=== PATIENT | female | born 1990 | race Hispanic/Latino ===

== ENCOUNTER 2018-03-07 18:27 | Emergency (ER) | payer SELFPAY ==
[~2018-03-07 18:27] MED LIST: ISOVUE-370 76%-LOCM 1 ML ONE
[2018-03-07 18:47] LABS: #Basophils 0.1 thou/uL (0.0-0.2); #Eosinphils 0.2 thou/uL (0.0-0.7); #Lymphocytes 2.8 thou/uL (1.20-3.40); #Monocytes 0.8 thou/uL (0.11-0.59); #Neutrophils 7.5 thou/uL (1.40-6.50); %Basophils 0.5 % (0.0-1.0); %Eosinophils 1.4 % (0.0-10.0); %Lymphocytes 24.4 % (21.0-51.0); %Monocytes 6.9 % (0.0-10.0); %Neutrophils 66.7 % (42.0-75.0); Hemoglobin 13.9 g/dL (12.0-16.0); Mean Corpuscular HGB CONC 34.2 g/dL (32.0-36.0); Mean Corpuscular Volume 90.7 fl (81.0-99.0); Platelet Count 353 thou/uL (130-400); Red Blood Cell (RBC) Count 4.48 mill/uL (4.20-5.40); White Blood Cell (WBC) Count 11.3 thou/uL (4.8-10.8)
[2018-03-07 18:54] LABS: BHCG - Serum Negative (NEGATIVE); Pregs Control Background? CLEAR/WHITE (CLR/WHITE); Pregs Control Bar Appear? YES (CONTROL BAR)
[2018-03-07 19:00] LABS: Bilirubin Negative (Negative); Blood, Urine Negative (Negative); Clarity CLEAR (Clear); Glucose, Urine (Dipstick) Negative (Negative); Leukocyte Negative (Negative); Nitrite Negative (Negative); Protein, Urine (Dipstick) Negative (Neg-Trace); Specific Gravity, Urine 1.034 (1.002-1.036); pH, Urine 5.5 (5.0-9.0)
[2018-03-07 19:07] LABS: ALT (SGPT) 31 U/L (8-55); AST (SGOT) 23 U/L (5-34); Albumin 4.3 g/dL (3.5-5.0); Alkaline Phosphatase 89 U/L (40-150); Anion Gap 13 mmol/L (10-20); BUN (Urea Nitrogen) 17 mg/dL (7.0-18.7); Bilirubin, Total 0.5 mg/dL (0.2-1.2); Calc. Creatinine Clearance 0 mL/min (70-130); Calcium 9.6 mg/dL (7.8-10.44); Carbon Dioxide 24 mmol/L (22-29); Chloride 103 mmol/L (98-107); Estimated GFR-MDRD Greater than 90; Glucose 133 mg/dL (70-105); Lipase 15 U/L (8-78); Potassium 3.9 mmol/L (3.5-5.1); Protein, Total 7.3 g/dL (6.0-8.3); Sodium 136 mmol/L (136-145)
--- NOTE | 2018-03-07 22:02 | ULT ---
ULTRASOUND PELVIS DOPPLER DUPLEX: 03/07/18 at 8:30 p.m. HISTORY: 27-year-old female with right sided pelvic pain. TECHNIQUE: Transabdominal transducer was used to evaluate the intrapelvic contents. Color flow and spectral anal ysis of adnexa. FINDINGS: Because a transvaginal ultrasound was not performed, and because of body habitus, the evaluation is l imited, especially of the lower uterine segment. Uterus is 7.5 x 3.5 x 5.5 cm. Endometrial stripe is poorly visualized. It is measured as 1 cm (10 mm). Right ovary: 3.5 x 1.5 x 3 cm. Left ovary: 3 x 2.5 x 2.5 cm. Blood flow demonstrated in both ovaries by doppler. No free fluid visualized in the cul-de-sac. No ovarian cyst is visualized. IMPRESSION: 1. Limited study. 2. No pathology identified. POS: [facility]
--- NOTE | 2018-03-07 23:34 | CT ---
ABDOMEN AND PELVIC CT NONCONTRAST: 03/07/18 CLINICAL HISTORY: Right abdominal pain. Reference made to 02/28/18. FINDINGS: Absence of enteric contrast precludes reliable assessment of the bowel. Fat containing umbilical breana ia is present. There is low attenuation of the hepatic parenchyma which may be on the basis of hepati c steatosis. Correlate with liver function enzymes. There is 5.6 cm in diameter rounded mass involvin g the lateral segment left hepatic lobe with subtle internal hypodensity. There is prominent size of each adnexa and heterogeneity and prominence of the uterus. No acute osseo us pathology. IMPRESSION: 1. Large heterogeneous mass of the left hepatic lobe. Finding may represent focal nodular hyperp lasia given patient age and imaging appearance, although this finding is nonspecific and additional etiologies are not excluded on the basis of this exam, including malignancy. Therefore recommend foll [facility] hepatic mass protocol MRI of abdomen for more definitive characterization. 2. Noninflamed fat containing periumbilical hernia. 3. Incomplete assessment of bowel without enteric contrast. 4. Heterogeneity and prominence of uterus and adnexa. Correlate clinically. POS: [facility]
== END 2018-03-07 23:57 | disposition home or self-care (01) ==
LOC: ERS 18:27
DX: N83.209 Unspecified ovarian cyst, unspecified side (principal)
CPT/HCPCS: 36415; 74177; 76856; 80053; 81003; 83690; 84703; 85025; 93976

== ENCOUNTER 2019-04-02 07:54 | Emergency (ER) | payer SELFPAY ==
[2019-04-02 08:22] LABS: Bilirubin Negative (Negative); Blood, Urine Negative (Negative); Clarity CLEAR (Clear); Glucose, Urine (Dipstick) Negative (Negative); Leukocyte Negative (Negative); Nitrite Negative (Negative); Protein, Urine (Dipstick) Negative (Neg-Trace); Specific Gravity, Urine 1.019 (1.002-1.036); pH, Urine 6.5 (5.0-9.0)
[2019-04-02 08:31] LABS: #Basophils 0.1 thou/uL (0.0-0.2); #Eosinphils 0.1 thou/uL (0.0-0.7); #Lymphocytes 2.6 thou/uL (1.20-3.40); #Monocytes 0.8 thou/uL (0.11-0.59); #Neutrophils 8.1 thou/uL (1.40-6.50); %Basophils 0.6 % (0.0-1.0); %Eosinophils 1.2 % (0.0-10.0); %Lymphocytes 22.5 % (21.0-51.0); %Monocytes 6.6 % (0.0-10.0); %Neutrophils 69.1 % (42.0-75.0); BHCG - Serum POSITIVE (NEGATIVE); Hemoglobin 13.6 g/dL (12.0-16.0); Mean Corpuscular HGB CONC 32.7 g/dL (32.0-36.0); Mean Corpuscular Hemoglobin 29.6 pg (27.0-31.0); Mean Corpuscular Volume 90.5 fL (78.0-98.0); Mean Platelet Volume 7.3 fL (7.4-10.4); Platelet Count 314 thou/uL (130-400); Pregs Control Background? CLEAR/WHITE (CLR/WHITE); Pregs Control Bar Appear? YES (CONTROL BAR); RBC Distribution Width 12.4 % (11.5-14.5); Red Blood Cell (RBC) Count 4.59 mill/uL (4.20-5.40); White Blood Cell (WBC) Count 11.8 thou/uL (4.8-10.8)
[2019-04-02 08:53] LABS: ALT (SGPT) 22 U/L (8-55); AST (SGOT) 20 U/L (5-34); Albumin 4.3 g/dL (3.5-5.0); Alkaline Phosphatase 67 U/L (40-150); Anion Gap 13 mmol/L (10-20); BUN (Urea Nitrogen) 10 mg/dL (7.0-18.7); Bilirubin, Total 0.6 mg/dL (0.2-1.2); Calc. Creatinine Clearance 0 mL/min (70-130); Calcium 9.7 mg/dL (7.8-10.44); Carbon Dioxide 23 mmol/L (22-29); Chloride 104 mmol/L (98-107); Estimated GFR-MDRD Greater than 90; Glucose 92 mg/dL (70-105); Potassium 3.8 mmol/L (3.5-5.1); Protein, Total 7.3 g/dL (6.0-8.3); Sodium 136 mmol/L (136-145)
--- NOTE | 2019-04-02 09:16 | ULT ---
PELVIC ULTRASOUND: DATE: 04/02/2019. HISTORY: Pelvic and abdominal pain. Last menstrual period on 02/07/2019. FINDINGS: Multiple transabdominal sonographic images of the pelvis are obtained. A fluid collection is seen wi thin the endometrial canal which contains both a pole and a yolk sac. Cardiac Doppler does dem onstrate heart tones with a heart rate of 136 b.p.m. The crown-rump length measures 0.91 cm corresponding to a gestational age by ultrasound of 6 weeks and 6 days. There are no findings to suggest a subchorionic hemorrhage on this examination. The ovaries demonstrate a normal sonographic appearance bilaterally. Doppler evaluation of each ovar y does suggest flow, although flow was obtained on the periphery of the right ovary. No free fluid is seen in the cul-de-sac. IMPRESSION: Single intrauterine gestation with gestational age by measurement of the crown-rump length of 6 weeks and 6 days. heart tones are documented. POS: [facility]
== END 2019-04-02 09:55 | disposition home or self-care (01) ==
LOC: ERS 07:54
DX: O20.0 Threatened abortion (principal); Z3A.01 Less than 8 weeks gestation of pregnancy
CPT/HCPCS: 36415; 76856; 80053; 81003; 84702; 84703; 85025; 93976

== ENCOUNTER 2019-08-31 10:15 | Day surgery (SDC) | payer OTHER ==
[2019-08-31 10:58] VITALS: BP 110/67; TEMP 98.6
[2019-08-31 10:59] VITALS: BMI 39.1
[2019-08-31] MEDS ORDERED: Acetaminophen/Codeine 30-300mg Tablet PO PRN (11:22)
[2019-08-31] MEDS ORDERED: hydrALAZINE 20 MG/ML VIAL SLOW IVP PRN (11:22)
--- NOTE | 2019-08-31 11:25 | PDOC.FPROB ---
FMR OB H&P: HPI - History of Present Illness Chief Complaint: Pain History of Present Illness: 28 yo at 29.2 weeks is transferred from [place] ED for back/abdominal pain. Patient reports she has had similar pain intermittently throughout but was told it was normal. Pain worsened at 01:30 this am. Describes pain as constant with times of increased intensity, currently 8.5/10, lower abdominal pressure and back cramps similar to menstruation but worse. Reports vomiting x2 this am. Denies current nausea, fever, vaginal bleeding or discharge. Reports movement. She had visitors in house last night. Drank a small beer. Primary Care Physician: Dalila FMR OB H&P: Current - Care : 4 Para: 2 Due date: 11/14/19 - OB Labs 1 hour gtt: abnormal 3 hour GTT: scheduled to be done FMR OB H&P: History - Past Medical History PMH: Denies - OB History OB History: 12 years ago: delivery 1 month early in [place] after SROM, baby's stay complicated with hyperbilirubinemia 1 ectopic 6 years ago: Term , no complications - [facility] History [facility] History: Denies hx STD infections - Surgical History Sx History: None - Social History Social History: Reports alcohol use last night. Denies tobacco or drug use. FMR OB H&P: Medications - Current Home Medications: Medication Instructions Recorded Confirmed Type Acetaminophen W/ Codeine 1 tab PO Q6H PRN #10 tab 08/31/19 Rx [Acetaminophen/Codeine #3] Nitrofurantoin Monohyd/M-Cryst 100 mg PO BID #10 capsule 08/31/19 Rx [Macrobid 100 mg Capsule] Vitamin 1 tablet PO DAILY 08/31/19 08/31/19 History Allergies/Adverse Reactions: Allergies Allergy/AdvReac Type Severity Reaction Status Date / Time No Known Allergies Allergy Unverified 08/31/19 10:49 FMR OB H&P: ROS - Review of Systems General: denies: fever/chills, weight/appetite/sleep changes Eyes: denies: vision changes, double vision ENT: denies: nasal congestion, rhinorrhea Cardiovascular: denies: chest pain, palpitation, edema Respiratory: denies: shortness of breath, exercise intolerance Gastrointestinal: reports: abdominal pain, cramping, vomiting. denies: diarrhea Genitourinary (Female): denies: dysuria, hematuria, vaginal discharge, vaginal bleeding, contractions Musculoskeletal: reports: pain, tenderness Neurologic: denies: weakness, headache Integumentary: denies: itching, rash Psychological: denies: depression, anxiety FMR OB H&P: Vital Signs - Maternal Vital signs: Vital Signs - First Documented Temp Pulse Resp BP 98.6 F 81 18 110/67 08/31/19 10:36 08/31/19 10:36 08/31/19 10:36 08/31/19 10:36 - Heart Tones Baseline: 130 Variability: moderate Acceleration: present Deceleration: absent [place] contractions every: none FMR OB H&P: Physical Exam - Physical Exam General: NAD, awake, alert and oriented HEENT: normocephalic and atraumatic, MMM Heart: RRR, normal S1/S2, no murmurs/rubs/gallops, no edema General: CTAB, no respiratory distress Abdomen: soft, gravid, other (suprapubic TTP) Musculoskeletal: normal gait and station Skin: good tugor, capillary refill <2 seconds Lymphatic: no unusual bruising or bleeding Psychiatric: intact recent and remote memory FMR OB H&P: A/P - Problem List (1) Bacteriuria in Status: Acute Code(s): O99.89 - OTH DISEASES AND CONDITIONS COMPL PREG/ CHLDBRTH; R82.71 - BACTERIURIA (2) Back pain affecting Status: Acute Code(s): O99.89 - OTH DISEASES AND CONDITIONS COMPL PREG/ CHLDBRTH; M54.9 - DORSALGIA, UNSPECIFIED Discussion: Date/Time: 08/31/19 1125 Back/groin pain - likely ligament pain - will give tylenol #3 for pain Asymptomatic bacteriuria in - +LE and 1+ bacteria on UA in outside ED - will repeat here and order culture This H&P was discussed with Dr. Samuels who agree with the above documentation and plan. Addendum - Attending - Attending Attestation Date/Time: 09/03/19 0658 I personally evaluated the patient and discussed the management with Dr. Simpson I agree with the History, Examination, Assessment and Plan documented above with any addition or exceptions noted below. Pt vitals reviewed and wnl On physical exam significant finding include pain in lower lateral pelvis with deviation of the uterus consistent with ligament pain. UA culture + for GBS Will fax results to primary OB team
[2019-08-31 12:00] LABS: Mucous/LPF Rare LPF (<2+); RBC/HPF 0-3 HPF (0-3); Squamous Epithelial 0-3 HPF (0-3); WBC/HPF 0-3 HPF (0-3)
[2019-08-31 12:05] LABS: Bacteria/HPF 1+ HPF (None Seen)
--- NOTE | 2019-08-31 15:03 | ULT ---
US Pelvic Limited, Transvaginal HISTORY: Evaluate cervical length FINDINGS: CERVIX: Examination requested by ordering physician solely for documentation of cervical length. The cervix is visualized, and the cervical length is approximately 3.3 cm. There is no funneling of the region of the internal os demonstrated sonographically. IMPRESSION: Cervical length, 3.3 cm.
== END 2019-08-31 14:34 | disposition home or self-care (01) ==
LOC: L&D/OP 10:15
PROVIDERS: ATTEND Advanced Practice Midwife
DX: O99.89 Other specified diseases and conditions complicating pregnancy, childbirth and the puerperium (principal); R82.71 Bacteriuria; M54.9 Dorsalgia, unspecified; Z3A.29 29 weeks gestation of pregnancy
CPT/HCPCS: 76857; 81015; 87077; 87086

== ENCOUNTER 2019-10-28 16:31 | Observation (INO) | payer OTHER, SELFPAY ==
[2019-10-28] MEDS ORDERED: hydrALAZINE 20 MG/ML VIAL SLOW IVP PRN (16:47)
[2019-10-28] MEDS: Morphine 10 MG/ML VIAL ONE ×2 (16:57→18:11)
[2019-10-28] MEDS ORDERED: Morphine 4 MG/ML VIAL SLOW IVP SCH (17:00)
--- NOTE | 2019-10-28 17:39 | HP ---
PRIMARY LOCKSMITH HELPER: Lauren Conner CNM CHIEF COMPLAINT: Abdominal pain. HISTORY OF PRESENT ILLNESS: The patient is a 28-year-old G4, P2 female with an intrauterine at 37 weeks, who presented to [facility] with concerns of abdominal cramping, was evaluated there and noted not to be in imminent delivery and was transferred here for evaluation. The patient reports she has been having abdominal pains of increasing intensity, though not very frequent, since last night. She reports that they have gotten worse today and was home by herself and decided to come to the emergency room for evaluation. She denies any leakage of fluid or any vaginal bleeding. She is unable to report how long they last or how frequent they are. She says they are as close as 3 minutes, but could not tell me if they were 10 or 30 minutes apart. The patient has been having musculoskeletal pains of for some time now and has been seen multiple times in clinic for it. The patient denies fever or fall. Reports a headache with vomiting. Denies chest pain or shortness of breath. She has had nausea and vomiting that she attributes to the intensity of the pain. Denies diarrhea or constipation. Denies any new rashes, hip problems, knee problems, muscle weakness. Denies vaginal bleeding or leakage of fluid. Denies urinary urgency or frequency. PAST MEDICAL HISTORY: Negative. PAST SURGICAL HISTORY: Negative. SOCIAL HISTORY: Denies drug, alcohol, or tobacco use. ALLERGIES: FENTANYL, CAUSES ITCHING. THE PATIENT REPORTS THAT ABOUT 3 WEEKS AGO SHE WAS TREATED FOR AN INTESTINAL INFECTION AND LATER TREATED FOR WHAT SOUNDED LIKE A YEAST INFECTION. OB LABS: Unavailable at the time of dictation. REVIEW OF SYSTEMS: Per HPI. PHYSICAL EXAMINATION: VITAL SIGNS: Blood pressure 131/76, heart rate of 90, saturating 98% on room air, respiratory rate of 18. GENERAL: She appears to be in quite a bit of distress and discomfort. She is alert and oriented. Cooperative and pleasant to interact with. HEAD: Normocephalic and atraumatic. LUNGS: Clear to auscultation bilaterally. HEART: Has a regular rate and rhythm. ABDOMEN: Gravid, soft. She has some tenderness to palpation in her lower pelvis bilaterally with the left being worse. EXTREMITIES: Nontender and nonedematous. PELVIC: Cervical exam performed by the nursing staff seem to elicit a lot of pain to the patient. She is 3 cm dilated, 50% effaced, and -2 station. heart tracing shows the fetus with a baseline in the 130s with moderate long-term variability, positive 15 x 15 accelerations, and no decelerations. Tocometer at this time is not picking up any contractions, but has only been on the monitor for about 20 minutes. ASSESSMENT AND PLAN: The patient is a 28-year-old multiparous female at term, here for evaluation of labor. She is 3 cm dilated. We will treat her for her pain with morphine IV. She has been given antiemetics prior to presentation and we will re-evaluate in 2 to 3 hours. Job ID: [id number]
[2019-10-28 18:01] VITALS: BMI 42.9
[2019-10-28] MEDS ORDERED: Lactated Ringer's 1,000 ML IV SCH (20:15)
--- NOTE | 2019-10-28 21:24 | ULT ---
Exam: Nonstress biophysical profile HISTORY: Nonreactive NST TECHNIQUE: Nonstress biophysical profile was performed FINDINGS: Limited evaluation of the cervix due to shadowing Presentation: Vertex heart tones: 130 bpm Amniotic fluid index 16.5 cm Anterior placenta. Nonstress biophysical profile: tone 0 breathing 0 movements 2 Amniotic fluid 2 Total score 4 out of 8 IMPRESSION: Nonstress biophysical profile with a score of 4 out of 8 Results of study discussed with patient's nurse Nanette by the software systems analyst Audrey at the time of performi ng the exam
--- NOTE | 2019-10-28 21:35 | PDOC.EVN ---
Event Note - Event Note Event Note: Pt placed in observation. fht non reactive. BPP 4/8 4hours after morphine 6mg iv given. FHT now 130s? with mod ltv Accels?. No repetative decels. Will repeat bpp in the morning.
--- NOTE | 2019-10-29 11:41 | PRG ---
DATE OF SERVICE: 10/29/2019 SUBJECTIVE: The patient is a 28-year-old female, who was kept for observation. She presented yesterday at 37 weeks and 4 days for concerns of labor. During her evaluation, the patient was noted to have a nonreactive NST. Her BPP was 4/8. This is in the setting of 6 mg of morphine IV 4 hours previously. Given the whole picture, the patient was placed under observation for prolonged monitoring. Since that time, strip has become reactive. The patient reports that she is feeling less contractions, has slept through the night well. She does report she is having some bloody show when she goes to the bathroom and wipes. OBJECTIVE: VITAL SIGNS: This morning; blood pressure 127/79, pulse of 93, and respiratory rate of 18. GENERAL: She appears to be in no acute distress. She is alert and oriented, cooperative and pleasant to interact with. HEENT: Head is normocephalic, atraumatic. ABDOMEN: Gravid and soft. She does have tenderness with palpation particularly in the lower pelvis. On cervical exam, she does have some bloody show visible at the introitus. On digital exam, she has a lot of tenderness on the vaginal sidewalls. Cervix is 3, 50 and -2, unchanged from yesterday when she presented. ASSESSMENT AND PLAN: heart tracing now showing a baseline in the 130s with moderate long-term variability and positive 15 x 15 accelerations. A BPP is pending and in light of the 4/8 yesterday. Once that was completed, the oncoming physician, Dr. Egan can assess the patient for possible discharge home. The patient does have an appointment this morning at 10:30 with her primary OB. If she is discharged, we will hope that she can continue her routine follow up with Ms. Lauren Conner. Job ID: [id number]
--- NOTE | 2019-10-29 14:53 | ULT ---
BIOPHYSICAL PROFILE: HISTORY: A biophysical profile was done on 10/28/2019, which showed a biophysical profile score of 4/8. The mother had been given morphine before the exam. This is a repeat study. TECHNIQUE: Real-time imaging of the pelvis was performed. FINDINGS: This shows a single viable intrauterine in a vertex presentation. The placenta is anterior in location. Amniotic fluid index is 12.5. The heart rate is 152 beats per minute. The biophysical profile score is as follows: tone: 2 breathin movements: 2 Amniotic fluid: 2 IMPRESSION: Biophysical profile score of 8 of a possible 8. POS: [facility]
--- NOTE | 2019-10-30 15:53 | DIS ---
DATE OF ADMISSION: 10/28/2019 DATE OF DISCHARGE: 10/29/2019 DIAGNOSES: 1. Thirty-seven week intrauterine . 2. Contractions. HOSPITAL COURSE: The patient was placed on observation for concerns of labor and nonreactive NST. Her BPP at that time was 4/8 in the setting of 6 mg of morphine IV prior to that. The patient received prolonged monitoring with reactive NST and a repeat BPP of 8/8. She was found to be not in labor and discharged home with precautions. FOLLOWUP: Follow up with Lauren abad for scheduled appointment at 10:30. DIET: Regular. ACTIVITIES: As tolerated. INSTRUCTIONS: Call or return for heavy vaginal bleeding, leakage of fluid, regular contractions, or decreased movement. Job ID: [id number]
== END 2019-10-30 21:38 | disposition home or self-care (01) ==
LOC: L&D/OP 16:31 → L&D 10-30 18:44
PROVIDERS: ADMIT Obstetrics & Gynecology; ATTEND Obstetrics & Gynecology
DX: O99.89 Other specified diseases and conditions complicating pregnancy, childbirth and the puerperium (principal); R10.9 Unspecified abdominal pain; R51 Headache; O21.2 Late vomiting of pregnancy; O36.8330 Maternal care for abnormalities of the fetal heart rate or rhythm, third trimester, not applicable or unspecified; Z3A.37 37 weeks gestation of pregnancy; Z88.5 Allergy status to narcotic agent
CPT/HCPCS: 76819; 99285; J2270

== ENCOUNTER 2019-10-30 22:00 | Day surgery (SDC) | payer OTHER ==
[2019-10-30 22:25] VITALS: BP 125/80; TEMP 97.9; BMI 42.0
[2019-10-30] MEDS ORDERED: Terbutaline Sulfate 1 MG/ML VIAL ONE (23:25)
[2019-10-30] MEDS ORDERED: Promethazine HCl 25 MG/ML VIAL IM PRN (23:38)
[2019-10-30] MEDS ORDERED: Morphine 10 MG/ML VIAL ONE (23:40)
[2019-10-30] MEDS ORDERED: Lactated Ringer's 1,000 ML IV SCH (23:59)
[2019-10-30] MEDS ORDERED: Morphine 10 MG/ML VIAL SLOW IVP SCH (23:59)
[2019-10-31] MEDS ORDERED: Terbutaline Sulfate 1 MG/ML VIAL SC SCH (00:45)
[2019-10-31] MEDS ORDERED: Acetaminophen/Codeine 30-300mg Tablet PO SCH (00:45)
[2019-10-31] MEDS ORDERED: Lactated Ringer's 1,000 ML IV SCH (01:00)
--- NOTE | 2019-10-31 07:50 | PRG ---
DATE OF SERVICE: 10/30/2019 PRIMARY OB: Lauren Conner CNM, nurse web production designer. CHIEF COMPLAINT: Pelvic pain. HISTORY OF PRESENT ILLNESS: The patient is a 28-year-old G4, P2 female with an intrauterine at 37 weeks and 6 days gestation, presenting with pelvic pains that she has been having for the last 2 days since her last presentation. The patient has chronic pelvic pain, musculoskeletal in nature, and has been having contractions off and on for the last several days. The patient reports she has not been able to sleep for the last 2 days due to the pain and discomfort that has been getting worse. She is here for evaluation. She reports some bloody show, but denies any leakage of fluid. She reports her uterine contractions are still present. Has no other complaints. PAST MEDICAL HISTORY: Negative. PAST SURGICAL HISTORY: She has had abdominal wall I and D under general anesthesia. SOCIAL HISTORY: Denies drug, alcohol, or tobacco use. ALLERGIES: FENTANYL. MEDICATIONS: vitamins. OB LABORATORY DATA: Unavailable at the time of dictation. REVIEW OF SYSTEMS: Per HPI. PHYSICAL EXAMINATION: VITAL SIGNS: Blood pressure 120/68, heart rate of 100, saturating 97% on room air. GENERAL: She appears to be in some distress with significant pelvic pain that she has reported is worse with activity and movement. HEART: Regular. LUNGS: Clear. CERVICAL EXAM: Per nursing staff is 3, 60, and -3 station, unchanged from two previous visits. heart tracing shows the fetus with a baseline in 140s with moderate long-term variability, positive 15 x 15 accelerations. Contractions show irritability with contractions irregular in nature. ASSESSMENT AND PLAN: The patient was given 6 mg of morphine IV and 12.5 of Phenergan IM. She also was given 0.25 of terbutaline x1 to help space out these contractions that she has been experiencing. This helps significantly with her discomfort. She was also given two Tylenol No. 3, although did not resolve, gave her some relief. The patient felt comfortable at that point going home with prescription of Tylenol No. 3. She is scheduled for an induction of labor in about a week. She has no evidence of labor today. Fetus has a category 1 tracing. The patient has been discharged home with instructions to follow up with her primary OB as scheduled. Job ID: [id number]
== END 2019-10-31 02:05 | disposition home or self-care (01) ==
LOC: L&D/OP 22:00
PROVIDERS: ATTEND Obstetrics & Gynecology
DX: O47.1 False labor at or after 37 completed weeks of gestation (principal); Z3A.37 37 weeks gestation of pregnancy; Z88.5 Allergy status to narcotic agent
CPT/HCPCS: 36415; 85384; 96360; 96361; 96372; 96375; 99283; J2270; J2550; J3105

== ENCOUNTER 2019-11-07 05:30 | Inpatient (IN) | payer MEDICAID, OTHER, SELFPAY ==
[2019-11-07] MEDS ORDERED: Promethazine HCl 25 MG/ML VIAL IM PRN (06:03)
[2019-11-07] MEDS ORDERED: Misoprostol 200 MCG TAB PR PRN (06:03)
[2019-11-07] MEDS ORDERED: hydrALAZINE 20 MG/ML VIAL SLOW IVP PRN ×2 (06:03→16:38)
[2019-11-07] MEDS ORDERED: Ondansetron PF 4 MG/2 ML Vial IVP PRN (06:03)
[2019-11-07] MEDS ORDERED: Lidocaine 1% (PF) 30 ML VIAL SC PRN (06:03)
[2019-11-07] MEDS ORDERED: NS / Oxytocin 40 units/1000ml 1,000 ML IV PRN (06:03)
[2019-11-07] MEDS ORDERED: Ibuprofen 800 MG TAB PO PRN (06:03)
[2019-11-07] MEDS ORDERED: Methylergonovine 0.2 MG/ML VIAL IM PRN ×2 (06:03→16:38)
[2019-11-07] MEDS ORDERED: Butorphanol Tartrate 1 MG/ML VIAL SLOW IVP PRN (06:03)
[2019-11-07] MEDS ORDERED: HYDROcodone/Acetaminophen 5/325 mg Tablet PO PRN ×2 (06:03)
[2019-11-07] MEDS ORDERED: NS w/ Oxytocin 10 units 500 ML IV SCH (06:15)
[2019-11-07] MEDS: Lactated Ringer's 1,000 ML IV SCH ×3 (06:15→17:02)
[2019-11-07 06:34] LABS: Hemoglobin 12.8 g/dL (12.0-16.0); Mean Corpuscular HGB CONC 34.2 g/dL (32.0-36.0); Mean Corpuscular Hemoglobin 29.4 pg (27.0-31.0); Mean Platelet Volume 8.7 fL (7.4-10.4); Platelet Count 242 thou/uL (130-400); Red Blood Cell (RBC) Count 4.36 mill/uL (4.20-5.40); White Blood Cell (WBC) Count 12.3 thou/uL (4.8-10.8)
[2019-11-07] MEDS ORDERED: Penicillin G Potassium 5 MILL.UNITS VIAL ONE (06:43)
[2019-11-07 07:16] VITALS: BMI 40.9
[2019-11-07 07:22] LABS: HBSAg Index 0.13 S/CO (0-0.99); Hep B Surf Ag Non-Reactive S/CO (NonReactive); Syphilis Antibody Nonreactive (Nonreactive); Syphilis Antibody Index 0.05 S/CO (<1.00 Non-Reactive)
[2019-11-07] MEDS ORDERED: Fentanyl 4 mcg/Bup 0.1% Cadd 100 ML ONE (11:11)
[2019-11-07] MEDS ORDERED: Bupivacaine 0.75% W/DEXTROSE 8.25% 2 ML AMP ONE (11:11)
[2019-11-07] MEDS ORDERED: Fentanyl 100 MCG/2 ML VIAL ONE (11:29)
[2019-11-07] MEDS ORDERED: Bupivacaine 0.5% 10 ML VIAL ONE (11:29)
[2019-11-07] MEDS ORDERED: Pen G 2.5 MILL.UNITS/50 ML BAG IVPB SCH (13:00)
--- NOTE | 2019-11-07 13:14 | PDOC.LDHP ---
Labor and Delivery H&P Chief complaint: scheduled induction (elective) HPI: Arrives for IOL Current gestational age (weeks): 39 Due date: 11/14/19 Dating criteria: last menstrual period Grav: 4 Para: 2 OB History Details: One ectopic. x 2, one with gestational diabetes Current complications: other (obesity) Current medications: pre-mala vitamins Previous surgical history: other (abcess wash out) Allergies/Adverse Reactions: Allergies Allergy/AdvReac Type Severity Reaction Status Date / Time No Known Allergies Allergy Verified 11/07/19 06:08 Social history: none - Physical Exam Vital signs reviewed and normal: yes General: breathing through contractions Lungs: nonlabored breathing Abdomen: gravid Extremeties: trace edema FHT: category 1 - Vaginal Exam cm dilated: 3 Effacement: 50% Station: -3 - OB Labs Blood type: O RH: positive Antibody Screen: negative HIV: negative RPR: negative HEPSAg: negative 1 hour GCT: positive 3 hour GTT: Neg GBS: positive Urine drug screen: negative Rubella: immune - Assessment L&D Assessment: elective induction at term - Plan Plan: admit to L&D, GBS antibiotic prophylaxis
--- NOTE | 2019-11-07 13:24 | PDOC.OPDEL ---
OB Operative/Delivery Note Delivery Dr/Surgeon: Michel Conner Pre-Delivery Diagnosis: elective induction Procedure/Post Delivery Dx: spontaneous vaginal delivery Weeks gestation: 39 Anesthesia: epidural - Findings A Sex: female Weight: 7 lb 10 oz - 1 min: 9 - 5 min: 9 - Additional Findings/Plan Placenta delivered: spontaneous Repaired Obstetrical Laceration: none Estimated blood loss: 122mL Post delivery plan: routine recovery
[2019-11-07] MEDS ORDERED: Benzocaine-Menthol 82.5 ML CAN TOP PRN (16:38)
[2019-11-07] MEDS ORDERED: NS / Oxytocin 40 units/1000ml 1,000 ML IV SCH (16:38)
[2019-11-07] MEDS ORDERED: Milk Of Magnesia 30 ML UDCUP PO PRN (16:38)
[2019-11-07] MEDS ORDERED: Bisacodyl 10 MG SUPP PR PRN (16:38)
[2019-11-07] MEDS: Ferrous Sulfate 325 MG TAB PO SCH (17:01)
[2019-11-07] MEDS: HYDROcodone/Acetaminophen 5/325 mg Tablet PO PRN (17:04)
[2019-11-07] MEDS: Ibuprofen 800 MG TAB PO SCH (21:40)
[2019-11-07] MEDS: Docusate Calcium (SURFAK) 240 MG CAP PO SCH (21:40)
[2019-11-08] MEDS: Ibuprofen 800 MG TAB PO SCH ×4 (06:03→23:47)
[2019-11-08] MEDS: Docusate Calcium (SURFAK) 240 MG CAP PO SCH ×3 (08:52→23:47)
[2019-11-08] MEDS: Ferrous Sulfate 325 MG TAB PO SCH ×2 (08:52→18:06)
[2019-11-08] MEDS ORDERED: Adacel (T-DAP) 0.5 ML SYRINGE IM ONE (09:00)
[2019-11-08] MEDS: HYDROcodone/Acetaminophen 5/325 mg Tablet PO PRN ×2 (11:27→23:52)
--- NOTE | 2019-11-08 21:29 | PDOC.PP ---
Post Progress Note Post Day #: 1 Subjective: Patient is doing well except her spinal headache, which she declined a blood patch. . In NICU with infant who was transferred to NICU for low )2 sats at 24 hrs. PO intake tolerated: yes Flatus: yes Ambulation: yes Vital Signs (12 hours) Temp Pulse Resp BP 11/08/19 11:20 98.2 F 87 20 98/55 L Weight Weight 224 lb - Physical Examination General: NAD Respiratory: non-labored breathing Abdominal: lochia (minimal) Skin: no rash Psychiatric: A&Ox3, normal affect Result Diagrams: 11/07/19 06:25 Additional Labs: Post Labs Blood Type O POSITIVE 11/07/19 06:25 Hep Bs Antigen Non-Reactive S/CO (NonReactive) 11/07/19 06:25 (1) Vaginal delivery Code(s): O80 - ENCOUNTER FOR FULL-TERM UNCOMPLICATED DELIVERY Status: Acute - Assessment/Plan A: G4 now p3 with spinal headache P: routine care Discharge home tomorrow if clinically indicated.
[2019-11-09] MEDS: HYDROcodone/Acetaminophen 5/325 mg Tablet PO PRN ×4 (04:17→18:41)
[2019-11-09] MEDS: Ibuprofen 800 MG TAB PO SCH ×4 (06:30→21:37)
[2019-11-09] MEDS: Docusate Calcium (SURFAK) 240 MG CAP PO SCH ×2 (08:19→21:38)
[2019-11-09] MEDS: Ferrous Sulfate 325 MG TAB PO SCH ×2 (08:19→15:03)
[2019-11-10] MEDS: Ibuprofen 800 MG TAB PO SCH ×2 (06:05→13:59)
[2019-11-10] MEDS: HYDROcodone/Acetaminophen 5/325 mg Tablet PO PRN ×2 (06:07→13:58)
[2019-11-10 07:56] VITALS: BP 108/70; TEMP 98.5
[2019-11-10] MEDS: Docusate Calcium (SURFAK) 240 MG CAP PO SCH (09:24)
[2019-11-10] MEDS: Ferrous Sulfate 325 MG TAB PO SCH (09:25)
== END 2019-11-10 16:35 | disposition home or self-care (01) | DRG 807 ==
LOC: L&D 05:42 → UNDOADMIN 05:42 → 3SW 16:20
PROVIDERS: ADMIT Student in an Organized Health Care Education/Training Program; ATTEND Student in an Organized Health Care Education/Training Program
PROC: 3E033VJ Introduction of Other Hormone into Peripheral Vein, Percutaneous Approach (ICD-10-PCS; 2019-11-07)
PROC: 10E0XZZ Delivery of Products of Conception, External Approach (ICD-10-PCS; principal; 2019-11-09)
DX: O99.214 Obesity complicating childbirth (principal); Z37.0 Single live birth; Z3A.39 39 weeks gestation of pregnancy; E66.9 Obesity, unspecified; O99.824 Streptococcus B carrier state complicating childbirth; O89.4 Spinal and epidural anesthesia-induced headache during the puerperium
CPT/HCPCS: 36415; 51702; 85027; 86780; 86850; 86900; 86901; 87340; J0595; J2540; J2590; J3010; J3490

== ENCOUNTER 2021-10-26 08:06 | Emergency (ER) | payer SELFPAY ==
[2021-10-26 09:08] LABS: Pregnancy Test - Urine (BHCG) Negative (Negative); Pregu Control Background? CLEAR/WHITE (CLR/WHITE); Pregu Control Bar Appear? YES (CONTROL BAR); Specific Gravity 1.014 (1.002-1.036)
== END 2021-10-26 09:45 | disposition home or self-care (01) ==
LOC: ERS 08:06
DX: N60.12 Diffuse cystic mastopathy of left breast (principal)
CPT/HCPCS: 81025; 99283

== ENCOUNTER 2023-12-20 03:38 | Emergency (ER) | payer SELFPAY ==
[2023-12-20 04:54] LABS: #Eosinphils 0.2 thou/uL (0.0-0.7); #Monocytes 0.9 thou/uL (0.11-0.59); #Neutrophils 7.9 thou/uL (1.40-6.50); %Basophils 0.3 % (0.0-1.0); %Eosinophils 1.6 % (0.0-10.0); %Lymphocytes 25.3 % (21.0-51.0); %Monocytes 7.1 % (0.0-10.0); Hematocrit 38.8 % (36.0-47.0); Hemoglobin 12.9 g/dL (12.0-16.0); Mean Corpuscular HGB CONC 33.2 g/dL (32.0-36.0); Mean Corpuscular Hemoglobin 30.4 pg (27.0-31.0); Mean Corpuscular Volume 91.3 fl (78.0-98.0); Mean Platelet Volume 9.6 fL (7.4-10.4); Platelet Count 303 10x3/uL (130-400); RBC Distribution Width 13.4 % (11.5-14.5); Red Blood Cell (RBC) Count 4.25 mill/uL (4.20-5.40); White Blood Cell (WBC) Count 12.2 10x3/uL (4.8-10.8)
[2023-12-20 05:04] LABS: BHCG - Serum Negative (NEGATIVE); Pregs Control Background? CLEAR/WHITE (CLR/WHITE); Pregs Control Bar Appear? YES (CONTROL BAR)
[2023-12-20 05:24] LABS: ALT (SGPT) 23 U/L (8-55); AST (SGOT) 35 U/L (5-34); Alkaline Phosphatase 78 U/L (40-110); Anion Gap 11 mmol/L (10-20); BUN (Urea Nitrogen) 14 mg/dL (7.0-18.7); Bilirubin, Total 0.5 mg/dL (0.2-1.2); Calc. Creatinine Clearance 0 mL/min (70-130); Calcium 9.1 mg/dL (7.8-10.44); Carbon Dioxide 23 mmol/L (22-29); Chloride 107 mmol/L (98-107); Estimated GFR 116; Globulin 2.8 g/dL (2.4-3.5); Glucose 104 mg/dL (70-105); Lipase 17 U/L (8-78); Magnesium 1.8 mg/dL (1.6-2.6); Protein, Total 6.8 g/dL (6.0-8.3); Sodium 137 mmol/L (136-145)
[2023-12-20 05:27] LABS: Troponin I Less than 0.010 ng/mL (< 0.028)
[2023-12-20] MEDS ORDERED: Ondansetron PF 4 MG/2 ML Vial ONE (05:35)
[2023-12-20] MEDS ORDERED: Morphine 4 MG/ML VIAL ONE (05:35)
== END 2023-12-20 07:38 | disposition home or self-care (01) ==
LOC: ERS 03:38
DX: R22.9 Localized swelling, mass and lump, unspecified (principal)
CPT/HCPCS: 36415; 71045; 71275; 80053; 83690; 83735; 83880; 84443; 84484; 84703; 85025; 93005; 96374; 96375; J2270; J2405

== ENCOUNTER 2025-05-27 06:45 | Emergency (ER) | payer SELFPAY ==
[2025-05-27] MEDS ORDERED: Aspirin Chewable 81 MG TAB ONE (07:23)
[2025-05-27 07:39] LABS: Troponin I Less than 0.010 ng/mL (< 0.028)
[2025-05-27 07:40] LABS: ALT (SGPT) 25 U/L (Less than 34); AST (SGOT) 39 U/L (11-34); Albumin 4.2 g/dL (3.1-4.5); Alkaline Phosphatase 89 U/L (40-110); Anion Gap 15 mmol/L (10-20); BUN (Urea Nitrogen) 15 mg/dL (7.0-18.7); Bilirubin, Total 0.5 mg/dL (0.3-1.2); Calc. Creatinine Clearance 0 mL/min (70-130); Calcium 8.9 mg/dL (7.8-10.44); Carbon Dioxide 20 mmol/L (22-29); Chloride 106 mmol/L (98-107); Globulin 3.4 g/dL (2.4-3.5); Glucose 118 mg/dL (70-105); Potassium 4.7 mmol/L (3.5-5.1); Sodium 136 mmol/L (136-145)
[2025-05-27] MEDS ORDERED: Ketorolac Tromethamine 30 MG (1 mL) VIAL ONE (08:00)
[2025-05-27] MEDS ORDERED: Acetaminophen 500 MG TAB ONE (08:00)
[2025-05-27 08:25] LABS: #Basophils 0.06 10x3/uL (0.0-0.2); #Eosinophils 0.19 10x3/uL (0.0-0.7); #Monocytes 0.71 10x3/uL (0.11-0.59); #Neutrophils 6.77 10x3/uL (1.40-6.50); %Basophils 0.6 % (0.0-1.0); %Eosinophils 1.8 % (0.0-10.0); %Lymphocytes 25.2 % (21.0-51.0); %Monocytes 6.7 % (0.0-10.0); %Neutrophils 64.2 % (42.0-75.0); Hematocrit 39.0 % (36.0-47.0); Hemoglobin 13.2 g/dL (12.0-16.0); Mean Corpuscular Hemoglobin 29.5 pg (27.0-31.0); Mean Corpuscular Volume 87.2 fL (78.0-98.0); Platelet Count 184 10x3/uL (130-400); Red Blood Cell (RBC) Count 4.47 mill/uL (4.20-5.40); White Blood Cell (WBC) Count 10.55 10x3/uL (4.8-10.8)
[2025-05-27 10:44] LABS: Troponin I Less than 0.010 ng/mL (< 0.028)
== END 2025-05-27 11:21 | disposition home or self-care (01) ==
LOC: ERS 06:45
DX: R07.9 Chest pain, unspecified (principal); M25.571 Pain in right ankle and joints of right foot; Z55.6 Problems related to health literacy
CPT/HCPCS: 36415; 71045; 80053; 84484; 85025; 85379; 93005; 96374; J1885